=== PATIENT | male | born 1935 | race Two or more races ===

== ENCOUNTER 2017-01-17 16:14 | Emergency (ER) | payer MEDICARE, OTHER ==
[~2017-01-17] VITALS: Ht 157.5 cm; Wt 72.6 kg
[2017-01-17] MEDS ORDERED: ESCI20TA PO (16:38)
[2017-01-17] MEDS ORDERED: RANI150C4 PO (16:38)
[2017-01-17] MEDS ORDERED: LISI10TA5 PO (16:38)
[2017-01-17] MEDS ORDERED: HYDR-3976 PO (16:38)
[2017-01-17] MEDS ORDERED: VILA10TA PO (16:38)
[2017-01-17] MEDS ORDERED: NABU750T2 PO (16:38)
[2017-01-17] MEDS ORDERED: LUBI24CA5 PO (16:38)
[2017-01-17] MEDS ORDERED: DONE10TA44 PO (16:38)
[2017-01-17] MEDS ORDERED: DOCU100C36 PO (16:38)
[2017-01-17 16:58] LABS: BASOPHILS % (AUTO) 0.3 % (0.0-2.0); EOSINOPHILS # (AUTO) 0.1 K/uL (0.0-0.7); EOSINOPHILS % (AUTO) 0.8 % (0.0-7.0); HEMATOCRIT 40.3 % (40-50); HEMOGLOBIN 13.4 G/DL (14.0-18.0); LYMPHOCYTES # (AUTO) 1.3 K/UL (0.8-4.8); LYMPHOCYTES % (AUTO) 18.3 % (20.5-51.5); MEAN CORPUSCULAR HEMOGLOBIN 29.9 UUG (27.0-31.0); MEAN CORPUSCULAR HGB CONC 33 g/dL (32.0-37.0); MEAN CORPUSCULAR VOLUME 89.8 FL (82.0-92.0); MONOCYTES # (AUTO) 0.4 K/UL (0.1-1.30); MONOCYTES % (AUTO) 6.1 % (0.0-11.0); NEUTROPHILS # (AUTO) 5.1 K/UL (1.8-8.9); NEUTROPHILS % (AUTO) 74.5 % (38.5-71.5); PLATELET COUNT (AUTO) 316 K/UL (150-450); RED BLOOD CELL COUNT(AUTO) 4.49 MIL/UL (4.7-6.1); WHITE BLOOD COUNT (AUTO) 6.9 K/UL (4.0-11.2)
[2017-01-17 17:00] LABS: CARBON DIOXIDE 27 mmol/L (21-32); CHLORIDE 105 mmol/L (98-107); CREATININE 1.3 mg/dL (0.6-1.3); GLUCOSE 99 mg/dL (74-106); POTASSIUM 4.5 mmol/L (3.5-5.1); UREA NITROGEN, BLOOD 21 mg/dL (7-18)
--- NOTE | 2017-01-17 17:00 | NUR ---
pt able to walk with own cane with steady gait. pt son chago will take the pt to his home and him and the who is a nurse will watch him. pt says he feels good and elie any headache, dizzines or any other complain
[2017-01-17] MEDS: NEOMY/BACITRA/POLYMYXIN B OINT UD PACKET TP ONE (17:03)
[2017-01-17 17:06] LABS: ALANINE AMINOTRANSFERASE 21 U/L (16-63); ALKALINE PHOSPHATASE 50 U/L (50-136); ASPARTATE AMINOTRANSFERASE 17 U/L (15-37); BILIRUBIN,DIRECT 0.1 mg/dL (0.0-0.2); BILIRUBIN,TOTAL 0.6 mg/dL (0.2-1.0); TOTAL PROTEIN, SERUM 6.8 g/dL (6.4-8.2)
[2017-01-17 17:27] VITALS: BP 138/71
[2017-01-17] MEDS ORDERED: NEOMY/BACITRA/POLYMYXIN B OINT UD PACKET TP ONE (17:32)
== END 2017-01-17 17:31 | disposition home or self-care (01) ==
LOC: ER 16:15
DX: S00.81XA Abrasion of other part of head, initial encounter (principal); K21.9 Gastro-esophageal reflux disease without esophagitis; R55 Syncope and collapse; F32.9 Major depressive disorder, single episode, unspecified; W18.30XA Fall on same level, unspecified, initial encounter; Y93.89 Activity, other specified; Y92.89 Other specified places as the place of occurrence of the external cause; Y99.8 Other external cause status
CPT/HCPCS: 36415; 70450; 71010; 80048; 80076; 84484; 85025; 85730; 93005; 99285; A4663; 70030-TC

== ENCOUNTER 2018-02-05 16:34 | Emergency (ER) | payer MEDICARE, OTHER ==
[~2018-02-05] VITALS: Ht 162.6 cm; Wt 72.6 kg
[~2018-02-05 16:34] MED LIST: DOCU100C36 PO; DONE10TA44 PO; ESCI20TA PO; HYDR-3976 PO; LISI10TA5 PO; LUBI24CA5 PO; NABU750T2 PO; RANI150C4 PO; VILA10TA PO
--- NOTE | 2018-02-05 16:46 | NUR ---
pt's face sheet faxed to Richard at [facility].
[2018-02-05] MEDS ORDERED: NITROGLYCERIN OINT 1 GM PACKET TP ONE ×2 (16:47→17:00)
[2018-02-05] MEDS ORDERED: NITROGLYCERIN 0.4 MG/TAB BOTTLE SL ONE ×2 (16:52→17:00)
[2018-02-05 16:58] VITALS: BP 124/60
--- NOTE | 2018-02-05 16:59 | NUR ---
Patient Tranfers to outside Facility:[facility] home performance laborer Physician: Garett Location: ER dept/home performance laborer RN: [facility] accepted the SB[facility] 83 accepted the patient and transferred to slabbing machine operator.
[2018-02-05 17:01] LABS: BASOPHILS # (AUTO) 0.1 K/uL (0.0-8.0); BASOPHILS % (AUTO) 0.7 % (0.0-2.0); EOSINOPHILS % (AUTO) 0.5 % (0.0-7.0); HEMATOCRIT 41.7 % (36.7-47.1); HEMOGLOBIN 14.2 g/dL (12.5-16.3); LYMPHOCYTES # (AUTO) 1.7 K/uL (20.0-40.0); LYMPHOCYTES % (AUTO) 23.6 % (20.5-51.5); MEAN CORPUSCULAR HEMOGLOBIN 29.8 uug (23.8-33.4); MEAN CORPUSCULAR HGB CONC 34 g/dL (32.5-36.3); MEAN CORPUSCULAR VOLUME 87.8 fL (73.0-96.2); MONOCYTES # (AUTO) 0.6 K/uL (2.0-10.0); NEUTROPHILS # (AUTO) 4.9 K/uL (1.8-8.9); NEUTROPHILS % (AUTO) 67.2 % (38.5-71.5); PLATELET COUNT (AUTO) 246 K/uL (152-348); RED BLOOD CELL COUNT(AUTO) 4.75 MIL/uL (4.06-5.63); WHITE BLOOD COUNT (AUTO) 7.3 K/uL (3.6-10.2)
[2018-02-05 17:18] LABS: CARBON DIOXIDE 28 mmol/L (21-32); CHLORIDE 104 mmol/L (98-107); CREATININE 1.4 mg/dL (0.6-1.3); GLUCOSE 156 mg/dL (74-106); UREA NITROGEN, BLOOD 22 mg/dL (7-18)
[2018-02-05 17:34] LABS: ALANINE AMINOTRANSFERASE 14 U/L (16-63); ALKALINE PHOSPHATASE 54 U/L (50-136); ASPARTATE AMINOTRANSFERASE 26 U/L (15-37); BILIRUBIN,DIRECT 0.1 mg/dL (0.0-0.2); BILIRUBIN,TOTAL 0.6 mg/dL (0.2-1.0); TOTAL PROTEIN, SERUM 7.4 g/dL (6.4-8.2)
== END 2018-02-05 16:59 | disposition short-term general hospital (02) ==
LOC: ER 16:41
DX: I21.3 ST elevation (STEMI) myocardial infarction of unspecified site (principal); K21.9 Gastro-esophageal reflux disease without esophagitis; Z79.891 Long term (current) use of opiate analgesic; Z79.899 Other long term (current) drug therapy
CPT/HCPCS: 36415; 70030-TC; 71045; 85025; 93005; A4663

== ENCOUNTER 2018-10-27 20:43 | Inpatient (IN) | payer MEDICARE, OTHER ==
[~2018-10-27] VITALS: Ht 167.6 cm; Wt 70.1 kg
--- NOTE | 2018-10-27 20:48 | NUR ---
PATIENT WAS MSE BY DR CURRIE IN ROOM 04B. BIB RA 83 FROM HOME.
[2018-10-27 21:14] LABS: BASOPHILS # (AUTO) 0.1 K/uL (0.0-8.0); BASOPHILS % (AUTO) 0.8 % (0.0-2.0); EOSINOPHILS % (AUTO) 0.1 % (0.0-7.0); HEMATOCRIT 44.9 % (36.7-47.1); HEMOGLOBIN 15.1 g/dL (12.5-16.3); LYMPHOCYTES # (AUTO) 0.9 K/uL (20.0-40.0); LYMPHOCYTES % (AUTO) 8.6 % (20.5-51.5); MEAN CORPUSCULAR HEMOGLOBIN 31.3 uug (23.8-33.4); MEAN CORPUSCULAR HGB CONC 34 g/dL (32.5-36.3); MEAN CORPUSCULAR VOLUME 93.2 fL (73.0-96.2); MONOCYTES # (AUTO) 0.6 K/uL (2.0-10.0); MONOCYTES % (AUTO) 5.1 % (0.0-11.0); NEUTROPHILS # (AUTO) 9.4 K/uL (1.8-8.9); NEUTROPHILS % (AUTO) 85.4 % (38.5-71.5); PLATELET COUNT (AUTO) 229 K/uL (152-348); RED BLOOD CELL COUNT(AUTO) 4.82 MIL/uL (4.06-5.63)
[2018-10-27 21:20] LABS: CARBON DIOXIDE 24 mmol/L (21-32); CHLORIDE 106 mmol/L (98-107); CREATININE 2.3 mg/dL (0.6-1.3); GLUCOSE 139 mg/dL (74-106); POTASSIUM 5.3 mmol/L (3.5-5.1); UREA NITROGEN, BLOOD 50 mg/dL (7-18)
[2018-10-27 21:26] LABS: ACETAMINOPHEN < 2.0 ug/mL (10-30); ALANINE AMINOTRANSFERASE 17 U/L (16-63); ALKALINE PHOSPHATASE 50 U/L (50-136); ASPARTATE AMINOTRANSFERASE 16 U/L (15-37); BILIRUBIN,DIRECT 0.2 mg/dL (0.0-0.2); BILIRUBIN,TOTAL 0.9 mg/dL (0.2-1.0); TOTAL PROTEIN, SERUM 7.7 g/dL (6.4-8.2)
[2018-10-27 21:30] LABS: ETHANOL < 3 MG/DL (0-0)
--- NOTE | 2018-10-27 21:54 | NUR ---
[facility] CALLED DR CURRIE SPOKE WITH DR LO.
[2018-10-27 21:57] LABS: *BILIRUBIN,URIN 2+ (NEGATIVE); *BLOOD, URINE NEGATIVE (NEGATIVE); *CLARITY,URINE CLEAR (CLEAR); *COLOR,URINE DARK YELLOW (YELLOW); *KETONES,URINE 1+ (NEGATIVE); *UROBILINOGEN,URINE 0.2 E.U./dl (NORMAL); LEUKOCYTE ESTERASE ,URINE NEGATIVE (NEGATIVE); NITRITE, URINE NEGATIVE (NEGATIVE); UGLUCOSE NEGATIVE (NEGATIVE)
[2018-10-27 21:59] LABS: ABG BASE EXCESS -0.8 mmol/L; ABG HCO3 23.1 mmol/L; ABG PCO2 36.4 mmHg (35.0-45.0); ABG PH 7.421 (7.350-7.450); ABG PO2 127.9 mmHg (75.0-100.0); ABG SITE LEFT BRACHIAL; ABG TOTAL HEMOGLOBIN 15.2 G/dL (13.5-18.0); MetHb 0.4 % (0.0-1.5); O2Hb 97.3 % (94.0-97.0); VENT MODE Nasal Cannula
--- NOTE | 2018-10-27 22:02 | NUR ---
[facility] WAS CALLED PER DR CURRIE REQUEST DR REDDING EXCHANGE WAS PAGED. WAITING FOR CALLBACK
[2018-10-27 22:07] LABS: *AMPHETAMINE, URINE NEGATIVE (NEGATIVE); *BARBITURATE, URINE NEGATIVE (NEGATIVE); *CANNABINOID, URINE NEGATIVE (NEGATIVE); *COCCAINE, URINE NEGATIVE (NEGATIVE); *OPIATE, URINE POSITIVE (NEGATIVE); *PHENCYCLIDINE SCREEN,URINE NEGATIVE (NEGATIVE); BACTERIA,URINE FEW /HPF (NONE SEEN); SQUAMOUS EPITHELIAL CELL,UR FEW /HPF (NONE SEEN); WBC,URINE 0-3 /HPF (0-3)
--- NOTE | 2018-10-27 22:11 | NUR ---
Pt. admitted to [facility] , under care of Dr. REDDING Belongs List completed
--- NOTE | 2018-10-27 22:11 | NUR ---
DR CURRIE SPOKE WITH DR MILADIS QUINTERO TO ADMIT.
[2018-10-27] MEDS ORDERED: METO-356 PO (22:12)
--- NOTE | 2018-10-27 22:12 | NUR ---
Per patient's son, pt is full code, unable to get patient's medication at this time, will follow up. Patient is taking metoprolol, aspirin, gabapentin, and norco.
[2018-10-27] MEDS ORDERED: HYDR-3326 PO (22:16)
[2018-10-27] MEDS ORDERED: GABA-532 PO (22:16)
[2018-10-27] MEDS ORDERED: ASPI81TA31 PO (22:16)
--- NOTE | 2018-10-27 22:45 | NUR ---
Admitted a 83 years old male with diagnosis of AMS. Patient appears lethargic but arouse to verbal and tactile stimuli. Able to answer few question. Alert and oriented x3. Denies any pain or SOB. In no acute distress. On O2 at 3LPM via NC in place. O2 sat fluctuating between 91-97%. IV site on right FA and right upper arm intact and patent. Skin warm and dry to touch. LE cool to touch with cyanotic toes. Radial and pedal pulses present. NSR on tele at 71/min. Family present during admission. ROutine admission care done. Plan of care initiated. Safety measure initiated. Continue to monitor.
[2018-10-27] MEDS ORDERED: ONDANSETRON 4 MG/2 ML VIAL IV PRN (23:00)
[2018-10-27 23:10] VITALS: BP 158/51
[2018-10-28] VITALS (7 sets, daily range): BP systolic 113–171; BP diastolic 53–78
--- NOTE | 2018-10-28 01:15 | NUR ---
0100 -Patient blood pressure was 176/72 checked by AVIATION SAFETY INSPECTOR. Recheck by this nurse and obtained 169/75. Patient asymptomatic. Denies any dizziness, headache or blurred vision. Per patient he takes blood pressure medication but not aware what the name is. Dr. Leonardo made aware and instructed this nurse to take a manual BP and to continue to monitor patient. 0115 - BP check manually and obtain BP of 165/75. Patient remains asymptomatic. Continue to monitor.
--- NOTE | 2018-10-28 06:24 | NUR ---
Patient remains AOx3. In no acute distress. NSR with PAC at 64/min. IV site on right hand and right upper arm remains intact. Denies any pain or SOB. BP at 130/76 this AM. Needs attended to and met. Safety measure maintained and call nicole within reach.
[2018-10-28] MEDS: BLOOD SUGAR DIAGNOSTIC 1 EACH STRIP VI SCH ×4 (06:36→20:27)
[2018-10-28] MEDS: PANTOPRAZOLE SODIUM 40 MG TABLET.DR PO SCH (06:36)
--- NOTE | 2018-10-28 08:00 | NUR ---
AWAKE ALERT AND VERBALLY RESPONSIVE, SOMEWHAT UNCOOPERATIVE WITH CARE. REQUIRES A LOT OF REASSURANCE. MAX ASSIST IN ALL AREAS OF ADLS. SPOKE WITH SON REGARDING HOME MEDS SAID WILL BRING MEDS AND COPY OR LIST. SR/SB ON MONITOR
[2018-10-28 12:20] LABS: BASOPHILS # (AUTO) 0.1 K/uL (0.0-8.0); BASOPHILS % (AUTO) 0.6 % (0.0-2.0); EOSINOPHILS % (AUTO) 0.2 % (0.0-7.0); HEMATOCRIT 43.9 % (36.7-47.1); HEMOGLOBIN 14.5 g/dL (12.5-16.3); LYMPHOCYTES # (AUTO) 1.8 K/uL (20.0-40.0); LYMPHOCYTES % (AUTO) 18.8 % (20.5-51.5); MEAN CORPUSCULAR HEMOGLOBIN 30.6 uug (23.8-33.4); MEAN CORPUSCULAR HGB CONC 33 g/dL (32.5-36.3); MEAN CORPUSCULAR VOLUME 92.7 fL (73.0-96.2); MONOCYTES # (AUTO) 0.7 K/uL (2.0-10.0); MONOCYTES % (AUTO) 7.8 % (0.0-11.0); NEUTROPHILS # (AUTO) 6.9 K/uL (1.8-8.9); NEUTROPHILS % (AUTO) 72.6 % (38.5-71.5); PLATELET COUNT (AUTO) 187 K/uL (152-348); RED BLOOD CELL COUNT(AUTO) 4.73 MIL/uL (4.06-5.63); WHITE BLOOD COUNT (AUTO) 9.6 K/uL (3.6-10.2)
[2018-10-28 12:38] LABS: ALANINE AMINOTRANSFERASE 17 U/L (16-63); ALKALINE PHOSPHATASE 42 U/L (50-136); ASPARTATE AMINOTRANSFERASE 21 U/L (15-37); BILIRUBIN,TOTAL 0.8 mg/dL (0.2-1.0); CARBON DIOXIDE 27 mmol/L (21-32); CHLORIDE 105 mmol/L (98-107); CHOLESTEROL 141 mg/dL (<200); CREATININE 1.5 mg/dL (0.6-1.3); GLUCOSE 117 mg/dL (74-106); HDL CHOLESTEROL 41 mg/dL (40-60); MAGNESIUM 2.2 mg/dL (1.8-2.4); PHOSPHOROUS 3.3 mg/dL (2.5-4.9); POTASSIUM 4.6 mmol/L (3.5-5.1); TOTAL PROTEIN, SERUM 6.6 g/dL (6.4-8.2); TRIGLYCERIDES 82 MG/DL (30-150); UREA NITROGEN, BLOOD 41 mg/dL (7-18)
[2018-10-28] MEDS ORDERED: TRAM50TA2 PO (14:43)
[2018-10-28] MEDS ORDERED: DOCU-270 PO (14:43)
[2018-10-28] MEDS ORDERED: ATOR80TA PO (14:43)
[2018-10-28] MEDS ORDERED: MECL-102 PO (14:43)
[2018-10-28] MEDS ORDERED: SUCR1TAB PO (14:43)
[2018-10-28] MEDS ORDERED: ISOS30TA6 PO (14:43)
[2018-10-28] MEDS ORDERED: MAGN400C PO (14:43)
[2018-10-28] MEDS ORDERED: TRAZ-182 PO (14:43)
[2018-10-28] MEDS ORDERED: RANI150T8 PO (14:43)
[2018-10-28] MEDS ORDERED: DULO60CA45 PO (14:43)
[2018-10-28] MEDS ORDERED: FERR325T22 PO (14:43)
[2018-10-28] MEDS ORDERED: ENTA200T PO (14:43)
[2018-10-28] MEDS ORDERED: PANT40TA2 PO (14:43)
[2018-10-28] MEDS ORDERED: LUBI24CA5 PO (14:43)
[2018-10-28] MEDS ORDERED: MIRA25TA PO (14:43)
[2018-10-28] MEDS ORDERED: MELO7.5T12 PO (14:43)
[2018-10-28] MEDS ORDERED: CARB-93 PO (14:43)
[2018-10-28] MEDS ORDERED: NABUMETONE 500 MG PO SCH (15:30)
[2018-10-28] MEDS ORDERED: MECLIZINE HCL 25 MG TABLET PO PRN (15:30)
[2018-10-28] MEDS: SUCRALFATE 1 G TABLET PO SCH ×2 (16:38→23:31)
[2018-10-28] MEDS: ENTACAPONE 200 MG TABLET PO SCH (16:38)
[2018-10-28] MEDS: CARBIDOPA/LEVODOPA 25-100MG TABLET PO SCH ×2 (16:38→20:13)
--- NOTE | 2018-10-28 16:55 | NUR ---
CONTINUE WITH TELE OBSERVATION SR/SB ON MONITOR.
--- NOTE | 2018-10-28 16:56 | NUR ---
SEEN BY HOSPITALIST Hiren GIBBS WITH ORDERS. PATIENT SOMTIMES CAN BE UNCOOPERATIVE, REFUSED BLOOD DRAWING THIS AM BUT AGREED LATER AFTER EXPLAINING THE IMPORTANCE OF DRAWING BLOOD
[2018-10-28] MEDS ORDERED: MAGNESIUM OXIDE 250 MG PO SCH (17:00)
[2018-10-28] MEDS ORDERED: MELOXICAM 7.5 MG TABLET PO SCH (17:00)
[2018-10-28] MEDS ORDERED: Medication Not On Formulary EA (Ferrous Gluconate 324 MG) PO SCH (17:00)
[2018-10-28] MEDS ORDERED: MAGNESIUM OXIDE 250 MG TABLET PO SCH (17:00)
[2018-10-28] MEDS ORDERED: GUAIFENESIN/CODEINE 5 ML LIQUID UDC PO PRN ×2 (17:45→18:30)
[2018-10-28] MEDS ORDERED: GUAIFENESIN/DEXTROMETHORPHAN 5 ML UDC PO PRN (18:30)
--- NOTE | 2018-10-28 19:20 | NUR ---
Received patient lying in bed. AAOX3. In no acute distress. Denies any pain or SOB. IV site on right upper arm and right hand intact and patent. Occasional non-productive cough. WIll provide cough medication per order. Sinus joao with block PAC on tele at 54/min. Needs assessed and attended to. Safety measure initiated and call nicole within reach.
[2018-10-28] MEDS: ACETAMINOPHEN 325 MG TABLET PO PRN (20:13)
[2018-10-28] MEDS: ATORVASTATIN 40 MG TABLET PO SCH (20:13)
[2018-10-28] MEDS ORDERED: DEXTROSE 50% 50 ML DISP.SYRIN IV PRN (20:30)
[2018-10-28] MEDS: INSULIN REGULAR, HUMAN 300 UNIT/3 ML VIAL SQ PRN (20:36)
[2018-10-28] MEDS: FERROUS GLUCONATE 324 MG TABLET PO SCH (20:39)
[2018-10-28] MEDS ORDERED: BLOOD SUGAR DIAGNOSTIC 1 EACH STRIP VI SCH (21:00)
[2018-10-28] MEDS ORDERED: Medication Not On Formulary EA (Atorvastatin Calcium (Lipitor) 1 TAB) PO SCH (21:00)
--- NOTE | 2018-10-28 23:15 | NUR ---
PATIENT REQUESTING SLEEPING MEDICATION. Hiren FONTANA MADE AWARE AND ORDER A ONE TIME DOSE OF TRAZADONE 25MG. ORDER NOTED AND WILL CARRY OUT.
[2018-10-28] MEDS ORDERED: TRAZODONE 50 MG TABLET PO ONE (23:30)
[2018-10-29 00:46] VITALS: BP 146/62
[2018-10-29 05:11] VITALS: BP 132/64
--- NOTE | 2018-10-29 06:13 | NUR ---
AOx3. Slept well after taking Trazodone 25mg PO last night. In no acute distress. Sinus joao with occasional block PAC at 59/min. IV site on right hand and right upper arm remains intact. Denies any pain or SOB. Needs attended to and met. Safety measure maintained and call nicole within reach.
[2018-10-29] MEDS: PANTOPRAZOLE SODIUM 40 MG TABLET.DR PO SCH (06:19)
[2018-10-29] MEDS: SUCRALFATE 1 G TABLET PO SCH ×4 (06:19→23:47)
[2018-10-29] MEDS: BLOOD SUGAR DIAGNOSTIC 1 EACH STRIP VI SCH ×4 (06:31→20:30)
[2018-10-29 06:39] LABS: BASOPHILS % (AUTO) 0.2 % (0.0-2.0); EOSINOPHILS # (AUTO) 0.1 K/uL (0.0-0.7); EOSINOPHILS % (AUTO) 0.8 % (0.0-7.0); HEMOGLOBIN 14.7 g/dL (12.5-16.3); LYMPHOCYTES # (AUTO) 1.9 K/uL (20.0-40.0); LYMPHOCYTES % (AUTO) 25.9 % (20.5-51.5); MEAN CORPUSCULAR HEMOGLOBIN 31.1 uug (23.8-33.4); MEAN CORPUSCULAR HGB CONC 34 g/dL (32.5-36.3); MEAN CORPUSCULAR VOLUME 92.7 fL (73.0-96.2); MONOCYTES # (AUTO) 0.6 K/uL (2.0-10.0); MONOCYTES % (AUTO) 7.8 % (0.0-11.0); NEUTROPHILS # (AUTO) 4.7 K/uL (1.8-8.9); NEUTROPHILS % (AUTO) 65.3 % (38.5-71.5); PLATELET COUNT (AUTO) 184 K/uL (152-348); RED BLOOD CELL COUNT(AUTO) 4.74 MIL/uL (4.06-5.63); WHITE BLOOD COUNT (AUTO) 7.2 K/uL (3.6-10.2)
[2018-10-29 06:45] LABS: CREATININE 1.3 mg/dL (0.6-1.3); MAGNESIUM 1.9 mg/dL (1.8-2.4); PHOSPHOROUS 2.9 mg/dL (2.5-4.9); POTASSIUM 4.1 mmol/L (3.5-5.1)
--- NOTE | 2018-10-29 06:48 | NUR ---
Slime/Miquel called and reported Troponin level of 0.096 this AM. Will notify
--- NOTE | 2018-10-29 07:06 | NUR ---
Telephone call to Cardiology Dr. Rodriguez, informed of Troponin level this AM of 0.096. Per Dr. Rodriguez he will notify Dr. Chapin this AM. Endorsed to day shift nurse Bri to follow up.
[2018-10-29] MEDS: DONEPEZIL 10 MG TABLET PO SCH (08:43)
[2018-10-29] MEDS: DOCUSATE SODIUM 100 MG CAPSULE PO SCH (08:43)
[2018-10-29] MEDS: ISOSORBIDE MONONITRATE 30 MG TAB.SR.24H PO SCH (08:43)
[2018-10-29] MEDS: ACETAMINOPHEN 325 MG TABLET PO PRN (08:43)
[2018-10-29] MEDS: ESCITALOPRAM OXALATE 10 MG TABLET PO SCH (08:43)
[2018-10-29] MEDS: DULOXETINE 60 MG CAPSULE.DR PO SCH (08:44)
[2018-10-29] MEDS: CARBIDOPA/LEVODOPA 25-100MG TABLET PO SCH ×4 (08:44→20:24)
[2018-10-29] MEDS: ENTACAPONE 200 MG TABLET PO SCH ×2 (08:44→17:15)
[2018-10-29] MEDS: AMITIZA 24 MCG PO SCH (08:47)
[2018-10-29] MEDS: FERROUS GLUCONATE 324 MG TABLET PO SCH ×2 (08:47→20:24)
[2018-10-29] MEDS: NABUMETONE 500 MG PO SCH ×2 (08:47→17:22)
[2018-10-29] MEDS: MYRBETRIQ 25 MG PO SCH (08:47)
[2018-10-29] MEDS: METOPROLOL SUCCINATE XL 25 MG TAB.SR.24H PO SCH (08:53)
[2018-10-29] MEDS ORDERED: Medication Not On Formulary EA (Escitalopram Oxalate (Lexapro) 1 TAB) PO SCH (09:00)
[2018-10-29] MEDS ORDERED: Medication Not On Formulary EA (Vilazodone Hydrochloride (Viibryd) 20 MG) PO SCH (09:00)
[2018-10-29] MEDS ORDERED: PANTOPRAZOLE SODIUM 40 MG TABLET.DR PO SCH (09:00)
[2018-10-29] MEDS ORDERED: Medication Not On Formulary EA (Lubiprostone (Amitiza) 24 MCG) PO SCH (09:00)
[2018-10-29 11:27] VITALS: BP 123/67
[2018-10-29] MEDS ORDERED: POLYVINYL ALCOHOL OPHT DROPS 15 ML BOTTLE EACHEYE PRN (11:30)
[2018-10-29] MEDS: INSULIN REGULAR, HUMAN 300 UNIT/3 ML VIAL SQ PRN ×2 (11:42→20:34)
--- NOTE | 2018-10-29 12:00 | NUR ---
SEEN BY Hiren TIWARI HOSPITALIST NOTED SORE EYES AND BACK PAIN NOT RELIEVED WITH TYLENOL SEE NEW ORDERS. SEEN ALSO BY PT/OT/ST SEE NOTES
[2018-10-29] MEDS: IBUPROFEN 400 MG TABLET PO PRN ×2 (12:46→18:26)
--- NOTE | 2018-10-29 13:00 | NUR ---
SEEN BY DR CLANCY FOR CARDIO CONSULT SEE NOTES.
[2018-10-29] MEDS: ASPIRIN 81 MG TAB.CHEW PO SCH (14:20)
[2018-10-29 16:02] VITALS: BP 118/61
--- NOTE | 2018-10-29 17:52 | NUR ---
CONTINUE TELE OBSERVATION PATIENT DENIES CHEST PAIN OR SOB. MEDICATED FOR BACK PAIN WITH MOTRIN WITH GOOD RELIEF REMAINS SR ON MONITOR
--- NOTE | 2018-10-29 19:00 | NUR ---
Received patient in bed alert and awake. Iv site is intact and patent. VS stable. patient is in no apparent distress at this time. Bed in lowest position, locked, call light within reach. no changes in mental status. will continue to monitor.
[2018-10-29 20:00] VITALS: BP 106/43
[2018-10-29] MEDS: ATORVASTATIN 40 MG TABLET PO SCH (20:24)
--- NOTE | 2018-10-29 23:00 | NUR ---
Patient is requesting for sleeping medication. spoke to Md Sauceda for request. Dr. Sauceda ordered Trazodone 25mg every Hs prn for sleep.
[2018-10-29] MEDS ORDERED: TRAZODONE 50 MG TABLET PO PRN (23:15)
[2018-10-30 04:00] VITALS: BP 126/68
[2018-10-30] MEDS ORDERED: Z GUARD REMEDY PASTE 57 GM TUBE TOP PRN (04:15)
[2018-10-30] MEDS: PANTOPRAZOLE SODIUM 40 MG TABLET.DR PO SCH (06:10)
[2018-10-30] MEDS: SUCRALFATE 1 G TABLET PO SCH ×3 (06:10→16:49)
[2018-10-30] MEDS: BLOOD SUGAR DIAGNOSTIC 1 EACH STRIP VI SCH ×3 (06:31→16:49)
[2018-10-30 06:45] LABS: BASOPHILS % (AUTO) 0.2 % (0.0-2.0); EOSINOPHILS # (AUTO) 0.1 K/uL (0.0-0.7); EOSINOPHILS % (AUTO) 1.3 % (0.0-7.0); HEMATOCRIT 41.4 % (36.7-47.1); HEMOGLOBIN 13.9 g/dL (12.5-16.3); LYMPHOCYTES # (AUTO) 2.4 K/uL (20.0-40.0); LYMPHOCYTES % (AUTO) 29.1 % (20.5-51.5); MEAN CORPUSCULAR HEMOGLOBIN 30.9 uug (23.8-33.4); MEAN CORPUSCULAR HGB CONC 34 g/dL (32.5-36.3); MEAN CORPUSCULAR VOLUME 91.9 fL (73.0-96.2); MONOCYTES # (AUTO) 0.6 K/uL (2.0-10.0); MONOCYTES % (AUTO) 7.6 % (0.0-11.0); NEUTROPHILS # (AUTO) 5.1 K/uL (1.8-8.9); NEUTROPHILS % (AUTO) 61.8 % (38.5-71.5); PLATELET COUNT (AUTO) 182 K/uL (152-348); RED BLOOD CELL COUNT(AUTO) 4.51 MIL/uL (4.06-5.63); WHITE BLOOD COUNT (AUTO) 8.2 K/uL (3.6-10.2)
--- NOTE | 2018-10-30 06:55 | NUR ---
Patient is alert and awake ,slept intermittently . patient is in no distress at this time. Denies any discomfort. bed in lowest position, locked , and call light within reach. Will endorse to AM shift.
[2018-10-30 07:04] LABS: CARBON DIOXIDE 26 mmol/L (21-32); CHLORIDE 107 mmol/L (98-107); CREATININE 1.3 mg/dL (0.6-1.3); GLUCOSE 105 mg/dL (74-106); MAGNESIUM 1.8 mg/dL (1.8-2.4); PHOSPHOROUS 2.7 mg/dL (2.5-4.9); POTASSIUM 3.7 mmol/L (3.5-5.1); UREA NITROGEN, BLOOD 33 mg/dL (7-18)
--- NOTE | 2018-10-30 07:30 | NUR ---
RESTING IN BED WITH EYES CLOSED NO SS OF ACUTE PAIN OR DISTRESS, CONTINUE WITH PAIN MANAGEMENT AND P[BHAVESH FOR ARU DISCHARGE FOR CONTINUITY OF CARE
[2018-10-30] MEDS ORDERED: LISINOPRIL 10 MG TABLET PO SCH (09:00)
[2018-10-30] MEDS: ISOSORBIDE MONONITRATE 30 MG TAB.SR.24H PO SCH (09:33)
[2018-10-30] MEDS: DULOXETINE 60 MG CAPSULE.DR PO SCH (09:33)
[2018-10-30] MEDS: DOCUSATE SODIUM 100 MG CAPSULE PO SCH (09:33)
[2018-10-30] MEDS: ESCITALOPRAM OXALATE 10 MG TABLET PO SCH (09:34)
[2018-10-30] MEDS: ASPIRIN 81 MG TAB.CHEW PO SCH (09:34)
[2018-10-30] MEDS: CARBIDOPA/LEVODOPA 25-100MG TABLET PO SCH ×3 (09:34→16:47)
[2018-10-30] MEDS: ENTACAPONE 200 MG TABLET PO SCH ×2 (09:34→16:47)
[2018-10-30] MEDS: DONEPEZIL 10 MG TABLET PO SCH (09:34)
[2018-10-30] MEDS: FERROUS GLUCONATE 324 MG TABLET PO SCH (09:39)
[2018-10-30] MEDS: NABUMETONE 500 MG PO SCH ×2 (09:39→16:50)
[2018-10-30] MEDS: MYRBETRIQ 25 MG PO SCH (09:40)
[2018-10-30] MEDS: AMITIZA 24 MCG PO SCH (09:40)
[2018-10-30] MEDS: METOPROLOL SUCCINATE XL 25 MG TAB.SR.24H PO SCH (09:41)
[2018-10-30] MEDS: IBUPROFEN 400 MG TABLET PO PRN (10:25)
[2018-10-30 12:03] VITALS: BP 114/61
--- NOTE | 2018-10-30 12:30 | NUR ---
SEEN BY HOSPITALIST FOR FOLLOW-UP CONTINUE WITH DC PLAN. DISCHARGE ORDER RECEIVED. INNER TUBE TUBER MACHINE OPERATOR SPOKE WITH PATIENT AND SON BOTH AGREED PLAN OF CARE
[2018-10-30] MEDS ORDERED: CARBIDOPA/LEVODOPA 25-100MG TABLET PO SCH (13:00)
--- NOTE | 2018-10-30 15:59 | NUR ---
HOSPITALIST SPOKE WITH PATIENT ABOUT PLAN TO TRANSFER TO ARU PATIENT SOMEWHAT HESITANT ABOUT TRANSFER
[2018-10-30 16:02] VITALS: BP 122/48
[2018-10-30] MEDS: INSULIN REGULAR, HUMAN 300 UNIT/3 ML VIAL SQ PRN (17:26)
--- NOTE | 2018-10-30 17:45 | NUR ---
TRANSFERRED TO ARU [facility] VIA BED, STABLE. REPORT GIVEN TO ARU STAFF
== END 2018-10-30 17:39 | DRG 917 ==
LOC: ER 20:46 → TELE3 22:29 → MEDSURG3 10-29 14:20
PROVIDERS: ADMIT Internal Medicine; ATTEND Registered Nurse
DX: T40.2X1A Poisoning by other opioids, accidental (unintentional), initial encounter (principal); G92 Toxic encephalopathy; I21.A1 Myocardial infarction type 2; N17.0 Acute kidney failure with tubular necrosis; Y92.012 Bathroom of single-family (private) house as the place of occurrence of the external cause; F32.9 Major depressive disorder, single episode, unspecified; D72.829 Elevated white blood cell count, unspecified; E86.0 Dehydration; E78.5 Hyperlipidemia, unspecified; E87.5 Hyperkalemia; G89.29 Other chronic pain; Z95.1 Presence of aortocoronary bypass graft; E11.22 Type 2 diabetes mellitus with diabetic chronic kidney disease; I13.10 Hypertensive heart and chronic kidney disease without heart failure, with stage 1 through stage 4 chronic kidney disease, or unspecified chronic kidney disease; N18.9 Chronic kidney disease, unspecified; I25.10 Atherosclerotic heart disease of native coronary artery without angina pectoris; K21.9 Gastro-esophageal reflux disease without esophagitis; Z79.82 Long term (current) use of aspirin
CPT/HCPCS: 36415; 36600; 70030-TC; 70450; 71045; 80307; 83605; 83735; 84100; 84443; 85025; 85730; 87040; 87086; 93005; 93307; 93880; A4663; G0378; G0480; G0480-TC; J1815

== ENCOUNTER 2018-10-30 15:52 | Inpatient (IN) | payer MEDICARE, OTHER ==
[~2018-10-30] VITALS: Ht 172.7 cm; Wt 90.3 kg
[~2018-10-30 15:52] MED LIST changes: +ASPI81TA31 PO; +ATOR80TA PO; +CARB-93 PO; +DOCU-270 PO; +DULO60CA45 PO; +ENTA200T PO; +FERR325T22 PO; +GABA-532 PO; +HYDR-3326 PO; +ISOS30TA6 PO; +MAGN400C PO; +MECL-102 PO; +MELO7.5T12 PO; +METO-356 PO; +MIRA25TA PO; +PANT40TA2 PO; +RANI150T8 PO; +SUCR1TAB PO; +TRAM50TA2 PO; +TRAZ-182 PO
[2018-10-30 18:00] VITALS: BP 123/70
--- NOTE | 2018-10-30 19:30 | NUR ---
PATIENT RECEIVED FROM DAY SHIFT NURSE. ALERT AND ORIENTED 3-4. NO C/O PAIN OR SOB AT THIS TIME. ON URINAL FOR BATHROOM USE. NO SKIN PROBLEMS NOTED UPON ASSESSMENT. BELONGINGS NOTED AND LIST PLACED IN CHART. CALL LIGHT AND FREQUENTLY USED TIMES WITHIN REACH. SIDE RAILS UP BILATERALLY. WILL CONTINUE TO MONITOR.
[2018-10-30 20:18] VITALS: BP 112/51
--- NOTE | 2018-10-30 23:15 | NUR ---
MD HARRIS CONTACTED FOR MED RECON. SAYS HE WILL DO IT TOMORROW. WILL CONTINUE TO MONITOR.
[2018-10-31 04:34] VITALS: BP 105/66
[2018-10-31 07:30] VITALS: BP 143/77
--- NOTE | 2018-10-31 09:00 | NUR ---
Received patient awake, alert x4 resting in bed. Not in any form of distress. No complaint of pain. Up with occupational therapy for shower, showered with minimal assistance.
--- NOTE | 2018-10-31 11:30 | NUR ---
Patient complained of pain over bilateral knees and lower back, informed dr Myers and ordered [place] PRN. Informed Pako Gold/BLU as well and requested for medication reconciliation.
[2018-10-31] MEDS ORDERED: HYDROCODONE/APAP 5-325MG TABLET PO PRN (12:45)
[2018-10-31] MEDS ORDERED: NABUMETONE 500 MG PO SCH (13:15)
[2018-10-31] MEDS ORDERED: MECLIZINE HCL 25 MG TABLET PO SCH (13:15)
[2018-10-31 15:10] VITALS: BP 146/71
[2018-10-31] MEDS: MAGNESIUM HYDROXIDE 30 ML LIQUID UDC PO PRN (16:27)
[2018-10-31] MEDS: HYDROCODONE/APAP 5-325MG TABLET PO PRN (16:27)
[2018-10-31] MEDS ORDERED: MAGNESIUM OXIDE 250 MG PO SCH (17:00)
[2018-10-31] MEDS ORDERED: Medication Not On Formulary EA (Ferrous Gluconate 324 MG) PO SCH (17:00)
[2018-10-31] MEDS: MAGNESIUM OXIDE 250 MG TABLET PO SCH (17:33)
[2018-10-31] MEDS: CARBIDOPA/LEVODOPA 25-100MG TABLET PO SCH ×2 (17:33→21:21)
[2018-10-31] MEDS: ENTACAPONE 200 MG TABLET PO SCH (17:33)
[2018-10-31] MEDS: SUCRALFATE 1 G TABLET PO SCH (17:33)
[2018-10-31] MEDS: NABUMETONE 500MG PO SCH (17:33)
[2018-10-31] MEDS: MELOXICAM 7.5 MG TABLET PO SCH (17:33)
[2018-10-31 19:30] VITALS: BP 117/54
--- NOTE | 2018-10-31 19:30 | NUR ---
Received patient in bed, with son at bedside. Alert and oriented 3-4. C/O pain 09/05 upon assessment. Too early to give pain medication. Will monitor. Assisted with night time ADLs. No C/O SOB or distress at this time. Call light and frequently used items within reach. Will continue to monitor.
[2018-10-31] MEDS ORDERED: ZOLPIDEM 5 MG TABLET PO PRN (20:45)
[2018-10-31] MEDS: TRAZODONE 50 MG TABLET PO SCH (20:48)
[2018-10-31] MEDS: FERROUS GLUCONATE 324 MG TABLET PO SCH (20:48)
[2018-10-31] MEDS: DOCUSATE SODIUM 100 MG CAPSULE PO SCH (20:48)
[2018-10-31] MEDS: ATORVASTATIN 40 MG TABLET PO SCH (20:48)
[2018-10-31] MEDS ORDERED: RANITIDINE HCL PO SCH (21:00)
[2018-10-31] MEDS ORDERED: Medication Not On Formulary EA (Atorvastatin Calcium (Lipitor) 1 TAB) PO SCH (21:00)
[2018-11-01 05:22] VITALS: BP 150/51
[2018-11-01] MEDS: SUCRALFATE 1 G TABLET PO SCH ×5 (06:06→23:19)
[2018-11-01] MEDS: PANTOPRAZOLE SODIUM 40 MG TABLET.DR PO SCH ×2 (06:07→09:26)
[2018-11-01 06:57] LABS: BASOPHILS % (AUTO) 0.6 % (0.0-2.0); EOSINOPHILS # (AUTO) 0.1 K/uL (0.0-0.7); EOSINOPHILS % (AUTO) 1.8 % (0.0-7.0); HEMATOCRIT 43.5 % (36.7-47.1); HEMOGLOBIN 14.7 g/dL (12.5-16.3); LYMPHOCYTES # (AUTO) 2.1 K/uL (20.0-40.0); LYMPHOCYTES % (AUTO) 32.1 % (20.5-51.5); MEAN CORPUSCULAR HEMOGLOBIN 30.7 uug (23.8-33.4); MEAN CORPUSCULAR HGB CONC 34 g/dL (32.5-36.3); MONOCYTES # (AUTO) 0.5 K/uL (2.0-10.0); MONOCYTES % (AUTO) 7.8 % (0.0-11.0); NEUTROPHILS # (AUTO) 3.8 K/uL (1.8-8.9); NEUTROPHILS % (AUTO) 57.7 % (38.5-71.5); PLATELET COUNT (AUTO) 185 K/uL (152-348); RED BLOOD CELL COUNT(AUTO) 4.78 MIL/uL (4.06-5.63); WHITE BLOOD COUNT (AUTO) 6.6 K/uL (3.6-10.2)
[2018-11-01 07:05] LABS: CARBON DIOXIDE 28 mmol/L (21-32); CHLORIDE 108 mmol/L (98-107); CREATININE 1.1 mg/dL (0.6-1.3); GLUCOSE 96 mg/dL (74-106); UREA NITROGEN, BLOOD 26 mg/dL (7-18)
[2018-11-01 08:38] VITALS: BP 128/71
[2018-11-01] MEDS ORDERED: DOCUSATE SODIUM 100 MG CAPSULE PO SCH (09:00)
[2018-11-01] MEDS ORDERED: Medication Not On Formulary EA (Lubiprostone (Amitiza) 24 MCG) PO SCH (09:00)
[2018-11-01] MEDS ORDERED: Medication Not On Formulary EA (Escitalopram Oxalate (Lexapro) 1 TAB) PO SCH (09:00)
[2018-11-01] MEDS ORDERED: Medication Not On Formulary EA (Vilazodone Hydrochloride (Viibryd) 20 MG) PO SCH (09:00)
[2018-11-01] MEDS ORDERED: ESCITALOPRAM OXALATE 10 MG TABLET PO SCH (09:00)
[2018-11-01] MEDS: CARBIDOPA/LEVODOPA 25-100MG TABLET PO SCH ×4 (09:24→20:43)
[2018-11-01] MEDS: DOCUSATE SODIUM 100 MG CAPSULE PO SCH ×2 (09:25→20:44)
[2018-11-01] MEDS: MYRBETRIQ 25 MG PO SCH (09:25)
[2018-11-01] MEDS: DONEPEZIL 10 MG TABLET PO SCH (09:26)
[2018-11-01] MEDS: ASPIRIN 81 MG TAB.CHEW PO SCH (09:27)
[2018-11-01] MEDS: METOPROLOL SUCCINATE XL 25 MG TAB.SR.24H PO SCH (09:27)
[2018-11-01] MEDS: NABUMETONE 500MG PO SCH ×2 (09:28→17:35)
[2018-11-01] MEDS: FERROUS GLUCONATE 324 MG TABLET PO SCH ×2 (09:28→20:44)
[2018-11-01] MEDS: MAGNESIUM OXIDE 250 MG TABLET PO SCH ×2 (09:29→17:34)
[2018-11-01] MEDS: MELOXICAM 7.5 MG TABLET PO SCH ×2 (09:29→17:35)
[2018-11-01] MEDS: ISOSORBIDE MONONITRATE 30 MG TAB.SR.24H PO SCH (09:30)
[2018-11-01] MEDS: ENTACAPONE 200 MG TABLET PO SCH ×2 (09:31→17:34)
[2018-11-01] MEDS: DULOXETINE 60 MG CAPSULE.DR PO SCH (09:31)
[2018-11-01] MEDS: GABAPENTIN 100 MG CAPSULE PO SCH (09:32)
[2018-11-01] MEDS: AMITIZA (LUBIPROSTONE) 24MCG PO SCH (09:32)
[2018-11-01] MEDS: HYDROCODONE/APAP 5-325MG TABLET PO PRN ×2 (09:33→21:41)
[2018-11-01] MEDS: LISINOPRIL 10 MG TABLET PO SCH (09:56)
[2018-11-01] MEDS: MAGNESIUM HYDROXIDE 30 ML LIQUID UDC PO PRN (12:42)
[2018-11-01 16:52] VITALS: BP 90/46
--- NOTE | 2018-11-01 19:22 | NUR ---
Patient calm and comfortable with no signs of distress; stable vital signs; medication compliant.
[2018-11-01 19:49] VITALS: BP 94/45
--- NOTE | 2018-11-01 20:00 | NUR ---
Patient received to care, sitting up in chair, alert and oriented x4. Patient has no complaints of pain at this time, but asked if doctor was coming tonight. Nurse advised patient that MD is not coming tonight, but possibly tomorrow. All safety and fall precaution measures are in place. Call light and personal items are within reach at all times. Will continue to monitor.
[2018-11-01] MEDS: ATORVASTATIN 40 MG TABLET PO SCH (20:44)
[2018-11-01] MEDS: TRAZODONE 50 MG TABLET PO SCH (20:44)
--- NOTE | 2018-11-01 21:30 | NUR ---
Patient requested sleep aid to help him sleep; per EMAR, previous order for Carlotta was d/c by MD this evening, which nurse explained to patient. Patient states that his hernia causes abdominal pain. Nurse offered patient prescribed analgesics and explained that it could assist him to sleep by easing the pain he is experiencing. Patient said ok.
--- NOTE | 2018-11-02 00:57 | NUR ---
INDIVIDUALIZED PLAN OF CARE
[2018-11-02 04:52] VITALS: BP 127/67
[2018-11-02] MEDS: SUCRALFATE 1 G TABLET PO SCH ×3 (06:04→17:11)
[2018-11-02] MEDS: PANTOPRAZOLE SODIUM 40 MG TABLET.DR PO SCH ×2 (06:04→07:52)
--- NOTE | 2018-11-02 06:33 | NUR ---
Patient complained of not sleeping all night and is concerned how it might effect his therapy today. Nurse apologized to patient for his inability to sleep and advised patient that I would have morning nurse follow-up with MD to see if previous Ambien order could be reinstated. All safety and fall precaution measures remain in place. VS are wnl and patient is stable. Call light and personal items remain within reach at all times.
[2018-11-02] MEDS: DOCUSATE SODIUM 100 MG CAPSULE PO SCH ×2 (07:52→21:27)
[2018-11-02] MEDS: CARBIDOPA/LEVODOPA 25-100MG TABLET PO SCH ×4 (07:52→21:27)
[2018-11-02] MEDS: ASPIRIN 81 MG TAB.CHEW PO SCH (07:52)
[2018-11-02] MEDS: DONEPEZIL 10 MG TABLET PO SCH (07:53)
[2018-11-02] MEDS: METOPROLOL SUCCINATE XL 25 MG TAB.SR.24H PO SCH (07:53)
[2018-11-02] MEDS: ENTACAPONE 200 MG TABLET PO SCH ×2 (07:53→17:10)
[2018-11-02] MEDS: DULOXETINE 60 MG CAPSULE.DR PO SCH (07:54)
[2018-11-02] MEDS: LISINOPRIL 10 MG TABLET PO SCH (07:55)
[2018-11-02] MEDS: GABAPENTIN 100 MG CAPSULE PO SCH (07:55)
[2018-11-02] MEDS: MELOXICAM 7.5 MG TABLET PO SCH ×2 (07:56→17:11)
[2018-11-02] MEDS: MAGNESIUM OXIDE 250 MG TABLET PO SCH ×2 (07:56→17:11)
[2018-11-02] MEDS: MYRBETRIQ 25 MG PO SCH (07:57)
[2018-11-02] MEDS: NABUMETONE 500MG PO SCH ×2 (07:58→17:10)
[2018-11-02] MEDS: FERROUS GLUCONATE 324 MG TABLET PO SCH ×2 (07:59→22:27)
[2018-11-02] MEDS: AMITIZA (LUBIPROSTONE) 24MCG PO SCH (07:59)
[2018-11-02] MEDS: ISOSORBIDE MONONITRATE 30 MG TAB.SR.24H PO SCH (08:00)
[2018-11-02 08:01] VITALS: BP 135/55
[2018-11-02] MEDS: HYDROCODONE/APAP 5-325MG TABLET PO PRN ×3 (08:07→17:13)
--- NOTE | 2018-11-02 15:14 | NUR ---
INTERDISCIPLINARY TEAM CONFERENCE
[2018-11-02 15:44] VITALS: BP 110/50
[2018-11-02 21:26] VITALS: BP 118/62
[2018-11-02] MEDS: ATORVASTATIN 40 MG TABLET PO SCH (21:27)
[2018-11-02] MEDS: TRAZODONE 100 MG TABLET PO SCH (22:28)
[2018-11-03] MEDS: SUCRALFATE 1 G TABLET PO SCH ×4 (00:46→16:44)
--- NOTE | 2018-11-03 00:51 | NUR ---
Patient sleeping comfortably at this time, easily arousable. Pt. is alert and oriented x3 able to express needs verbally. In No acute distress. Due medications administered as ordered and scheduled. patient assisted with ADLs during shift, needs attended, safety measures in place, call light left within easy reach and will continue with care.
[2018-11-03 05:58] VITALS: BP 122/58
[2018-11-03] MEDS: PANTOPRAZOLE SODIUM 40 MG TABLET.DR PO SCH (06:04)
[2018-11-03 08:00] VITALS: BP 121/45
[2018-11-03] MEDS: DOCUSATE SODIUM 100 MG CAPSULE PO SCH ×2 (08:34→20:54)
[2018-11-03] MEDS: ENTACAPONE 200 MG TABLET PO SCH ×2 (08:34→16:43)
[2018-11-03] MEDS: CARBIDOPA/LEVODOPA 25-100MG TABLET PO SCH ×4 (08:34→20:54)
[2018-11-03] MEDS: DONEPEZIL 10 MG TABLET PO SCH (08:34)
[2018-11-03] MEDS: GABAPENTIN 100 MG CAPSULE PO SCH (08:35)
[2018-11-03] MEDS: DULOXETINE 60 MG CAPSULE.DR PO SCH (08:35)
[2018-11-03] MEDS: MYRBETRIQ 25 MG PO SCH (08:35)
[2018-11-03] MEDS: ISOSORBIDE MONONITRATE 30 MG TAB.SR.24H PO SCH (08:36)
[2018-11-03] MEDS: FERROUS GLUCONATE 324 MG TABLET PO SCH ×2 (08:37→20:54)
[2018-11-03] MEDS: AMITIZA (LUBIPROSTONE) 24MCG PO SCH (08:37)
[2018-11-03] MEDS: LISINOPRIL 10 MG TABLET PO SCH (08:37)
[2018-11-03] MEDS: MAGNESIUM OXIDE 250 MG TABLET PO SCH ×2 (08:38→16:44)
[2018-11-03] MEDS: NABUMETONE 500MG PO SCH ×2 (08:38→16:45)
[2018-11-03] MEDS: MELOXICAM 7.5 MG TABLET PO SCH ×2 (08:39→16:43)
[2018-11-03] MEDS: ASPIRIN 81 MG TAB.CHEW PO SCH (08:39)
[2018-11-03] MEDS: METOPROLOL SUCCINATE XL 25 MG TAB.SR.24H PO SCH (09:00)
[2018-11-03 16:02] VITALS: BP 101/36
[2018-11-03 19:49] VITALS: BP 110/49
[2018-11-03] MEDS: ATORVASTATIN 40 MG TABLET PO SCH (20:55)
[2018-11-03] MEDS: TRAZODONE 100 MG TABLET PO SCH (20:55)
[2018-11-04] MEDS: SUCRALFATE 1 G TABLET PO SCH ×5 (00:35→23:23)
[2018-11-04 05:54] VITALS: BP 141/61
[2018-11-04] MEDS: PANTOPRAZOLE SODIUM 40 MG TABLET.DR PO SCH (06:14)
[2018-11-04 07:59] VITALS: BP 136/49
--- NOTE | 2018-11-04 08:33 | NUR ---
Patient awake in bed at this time, In No acute distress; respiration even and unlabored. VS taken and stable for patient. Due medications administered as ordered and scheduled. No c/o pain. Pt. on PT/OT service as scheduled. Safety measures in place, call light left within easy reach, endorsed to next shift and will continue with care.
[2018-11-04] MEDS: ASPIRIN 81 MG TAB.CHEW PO SCH (08:46)
[2018-11-04] MEDS: DONEPEZIL 10 MG TABLET PO SCH (08:46)
[2018-11-04] MEDS: DOCUSATE SODIUM 100 MG CAPSULE PO SCH ×2 (08:46→20:52)
[2018-11-04] MEDS: CARBIDOPA/LEVODOPA 25-100MG TABLET PO SCH ×4 (08:49→20:53)
[2018-11-04] MEDS: FERROUS GLUCONATE 324 MG TABLET PO SCH ×2 (08:49→20:53)
[2018-11-04] MEDS: AMITIZA (LUBIPROSTONE) 24MCG PO SCH (08:49)
[2018-11-04] MEDS: NABUMETONE 500MG PO SCH ×2 (08:50→17:25)
[2018-11-04] MEDS: DULOXETINE 60 MG CAPSULE.DR PO SCH (08:50)
[2018-11-04] MEDS: MELOXICAM 7.5 MG TABLET PO SCH ×2 (08:50→17:25)
[2018-11-04] MEDS: GABAPENTIN 100 MG CAPSULE PO SCH (08:51)
[2018-11-04] MEDS: ISOSORBIDE MONONITRATE 30 MG TAB.SR.24H PO SCH (08:51)
[2018-11-04] MEDS: MYRBETRIQ 25 MG PO SCH (08:52)
[2018-11-04] MEDS: ENTACAPONE 200 MG TABLET PO SCH ×2 (08:52→17:24)
[2018-11-04] MEDS: MAGNESIUM OXIDE 250 MG TABLET PO SCH ×2 (08:53→17:24)
[2018-11-04] MEDS: LISINOPRIL 10 MG TABLET PO SCH (08:54)
[2018-11-04] MEDS: HYDROCODONE/APAP 5-325MG TABLET PO PRN ×3 (08:56→23:24)
[2018-11-04] MEDS: METOPROLOL SUCCINATE XL 25 MG TAB.SR.24H PO SCH (09:00)
[2018-11-04 16:45] VITALS: BP 88/43
[2018-11-04 19:30] VITALS: BP 96/47
--- NOTE | 2018-11-04 19:35 | NUR ---
Patient received sitting in wheelchair. AAO x4. No acute distress or SOB noted. On room air. No Complain of pain at this time. Safety measures observed. Fall precaution maintained. Bed in low position, side rails up x2 for safety, brake and alarm on. Call light and personal belongings within reach. Continue to monitor.
--- NOTE | 2018-11-04 20:44 | NUR ---
Per SHIFT SUPERINTENDENT CAUSTIC CRESYLATE vital signs, patient had low BP: 76/46, HR:87. No dizziness or other symptoms, AAO x4. Encouraged him to have more fluid, gave him juices. Rechecked multiple times: BP: 80/44, 85/45, 96/47, HR: 82-86. Continue to monitor and will endorse to the oncoming nurse accordingly.
[2018-11-04] MEDS: ATORVASTATIN 40 MG TABLET PO SCH (20:53)
[2018-11-04] MEDS: TRAZODONE 100 MG TABLET PO SCH (20:55)
[2018-11-05] MEDS: SUCRALFATE 1 G TABLET PO SCH ×4 (06:19→23:08)
[2018-11-05] MEDS: PANTOPRAZOLE SODIUM 40 MG TABLET.DR PO SCH (06:19)
[2018-11-05 06:30] VITALS: BP 123/58
[2018-11-05 08:05] VITALS: BP 142/63
[2018-11-05] MEDS: DOCUSATE SODIUM 100 MG CAPSULE PO SCH ×2 (08:42→20:18)
[2018-11-05] MEDS: ASPIRIN 81 MG TAB.CHEW PO SCH (08:42)
[2018-11-05] MEDS: HYDROCODONE/APAP 5-325MG TABLET PO PRN ×2 (08:42→16:33)
[2018-11-05] MEDS: METOPROLOL SUCCINATE XL 25 MG TAB.SR.24H PO SCH (08:42)
[2018-11-05] MEDS: DONEPEZIL 10 MG TABLET PO SCH (08:43)
[2018-11-05] MEDS: DULOXETINE 60 MG CAPSULE.DR PO SCH (08:43)
[2018-11-05] MEDS: NABUMETONE 500MG PO SCH ×2 (08:43→16:32)
[2018-11-05] MEDS: MYRBETRIQ 25 MG PO SCH (08:43)
[2018-11-05] MEDS: CARBIDOPA/LEVODOPA 25-100MG TABLET PO SCH ×4 (08:43→20:18)
[2018-11-05] MEDS: ISOSORBIDE MONONITRATE 30 MG TAB.SR.24H PO SCH (08:44)
[2018-11-05] MEDS: FERROUS GLUCONATE 324 MG TABLET PO SCH ×2 (08:44→20:19)
[2018-11-05] MEDS: MAGNESIUM OXIDE 250 MG TABLET PO SCH ×2 (08:45→16:32)
[2018-11-05] MEDS: MELOXICAM 7.5 MG TABLET PO SCH ×2 (08:45→16:32)
[2018-11-05] MEDS: LISINOPRIL 10 MG TABLET PO SCH (08:45)
[2018-11-05] MEDS: AMITIZA (LUBIPROSTONE) 24MCG PO SCH (08:46)
[2018-11-05] MEDS: ENTACAPONE 200 MG TABLET PO SCH ×2 (08:46→16:32)
--- NOTE | 2018-11-05 15:16 | NUR ---
Patient noted resting in bed, complaints of pain, PRN [place] given, no signs of distress noted, call light in reach, bed locked and in lowest position
[2018-11-05 15:47] VITALS: BP_SYST 112; BP_SYST 117; BP_DIAS 57; BP_DIAS 59; BP_DIAS 60
[2018-11-05 15:54] VITALS: BP 108/59
[2018-11-05] MEDS: MAGNESIUM HYDROXIDE 30 ML LIQUID UDC PO PRN (16:33)
--- NOTE | 2018-11-05 19:30 | NUR ---
Received pt on bed. Pt awake, alert and orientedx3. Pt shows no signs of acute distress. Safety and comfort provided. Will continue to monitor
[2018-11-05 19:50] VITALS: BP 110/54
[2018-11-05] MEDS: ATORVASTATIN 40 MG TABLET PO SCH (20:18)
[2018-11-05] MEDS: TRAZODONE 100 MG TABLET PO SCH (20:19)
[2018-11-05] MEDS: TEMAZEPAM 15 MG CAPSULE PO PRN (22:48)
--- NOTE | 2018-11-05 22:48 | NUR ---
Pt demanding and impatient regarding sleeping medication. Trazadone given at 2019 as per pt requested to be given it early. At 2200H Pt stated that sleeping pill isn't working and very adamant in getting another sleeping medication. Notified Dr. Myers of concern. At 2220h received new order for Restoril 15mg HSPRN. Carried out order.At 2248h gave Restoril medication to pt. Pt showing negative attitude toward staff. Pt in no acute distress. Pt refused his sequential devise to be put on. Safety and comfort provided. Will continue to monitor.
[2018-11-06 04:50] VITALS: BP 122/61
[2018-11-06] MEDS: PANTOPRAZOLE SODIUM 40 MG TABLET.DR PO SCH (06:12)
[2018-11-06] MEDS: SUCRALFATE 1 G TABLET PO SCH ×3 (06:12→20:42)
--- NOTE | 2018-11-06 06:16 | NUR ---
Pt slept throughout the shift after giving the Restoril. Prescribed medication given and pt tolerated it well. Pt shows no signs of acute distress. Pt cooperative with care. Safety and comfort provided. All needs are met. Will endorse to incoming nurse for continuity of care.
[2018-11-06] MEDS ORDERED: MECLIZINE HCL 25 MG TABLET PO PRN (07:11)
[2018-11-06 07:57] VITALS: BP 139/70
[2018-11-06] MEDS: CARBIDOPA/LEVODOPA 25-100MG TABLET PO SCH ×4 (08:23→20:44)
[2018-11-06] MEDS: MELOXICAM 7.5 MG TABLET PO SCH ×2 (08:23→17:21)
[2018-11-06] MEDS: DONEPEZIL 10 MG TABLET PO SCH (08:23)
[2018-11-06] MEDS: ASPIRIN 81 MG TAB.CHEW PO SCH (08:23)
[2018-11-06] MEDS: DOCUSATE SODIUM 100 MG CAPSULE PO SCH ×2 (08:23→20:42)
[2018-11-06] MEDS: MAGNESIUM OXIDE 250 MG TABLET PO SCH ×2 (08:23→17:21)
[2018-11-06] MEDS: LISINOPRIL 10 MG TABLET PO SCH (08:23)
[2018-11-06] MEDS: ISOSORBIDE MONONITRATE 30 MG TAB.SR.24H PO SCH (08:24)
[2018-11-06] MEDS: AMITIZA (LUBIPROSTONE) 24MCG PO SCH (08:24)
[2018-11-06] MEDS: ENTACAPONE 200 MG TABLET PO SCH ×2 (08:24→17:21)
[2018-11-06] MEDS: MYRBETRIQ 25 MG PO SCH (08:24)
[2018-11-06] MEDS: DULOXETINE 60 MG CAPSULE.DR PO SCH (08:24)
[2018-11-06] MEDS: NABUMETONE 500MG PO SCH ×2 (08:25→17:22)
[2018-11-06] MEDS: METOPROLOL SUCCINATE XL 25 MG TAB.SR.24H PO SCH (08:26)
[2018-11-06] MEDS: FERROUS GLUCONATE 324 MG TABLET PO SCH ×2 (12:33→20:44)
[2018-11-06 16:16] VITALS: BP 114/52
--- NOTE | 2018-11-06 19:40 | NUR ---
Patient received awake,alert and oriented x 3-4. No s/s of acute distress noted. v/s stable. No c/o pain at this time. Fall precautions maintained. Will continue to monitor.
[2018-11-06] MEDS: ATORVASTATIN 40 MG TABLET PO SCH (20:44)
[2018-11-06] MEDS: TEMAZEPAM 15 MG CAPSULE PO PRN (20:45)
[2018-11-06] MEDS: TRAZODONE 100 MG TABLET PO SCH (20:46)
[2018-11-06 20:52] VITALS: BP 118/62
[2018-11-07 05:10] VITALS: BP 126/58
[2018-11-07] MEDS: PANTOPRAZOLE SODIUM 40 MG TABLET.DR PO SCH (06:17)
[2018-11-07] MEDS: SUCRALFATE 1 G TABLET PO SCH ×4 (06:28→21:11)
--- NOTE | 2018-11-07 06:53 | NUR ---
Patient slept throughout the shift. no c/o pain. Prescribed medication given and pt tolerated it well. Pt shows no signs of acute distress. Safety and comfort provided. All needs are met. no any significant events reported. Will continue rehab plan of care.
[2018-11-07] MEDS: METOPROLOL SUCCINATE XL 25 MG TAB.SR.24H PO SCH (08:43)
[2018-11-07] MEDS: FERROUS GLUCONATE 324 MG TABLET PO SCH ×2 (08:43→20:59)
[2018-11-07] MEDS: DOCUSATE SODIUM 100 MG CAPSULE PO SCH ×2 (08:43→20:59)
[2018-11-07] MEDS: ASPIRIN 81 MG TAB.CHEW PO SCH (08:43)
[2018-11-07] MEDS: DONEPEZIL 10 MG TABLET PO SCH (08:43)
[2018-11-07] MEDS: CARBIDOPA/LEVODOPA 25-100MG TABLET PO SCH ×4 (08:43→21:06)
[2018-11-07] MEDS: NABUMETONE 500MG PO SCH ×2 (08:44→17:21)
[2018-11-07] MEDS: ISOSORBIDE MONONITRATE 30 MG TAB.SR.24H PO SCH (08:44)
[2018-11-07] MEDS: DULOXETINE 60 MG CAPSULE.DR PO SCH (08:44)
[2018-11-07] MEDS: AMITIZA (LUBIPROSTONE) 24MCG PO SCH (08:44)
[2018-11-07] MEDS: ENTACAPONE 200 MG TABLET PO SCH ×2 (08:44→17:14)
[2018-11-07] MEDS: MAGNESIUM OXIDE 250 MG TABLET PO SCH ×2 (08:44→17:14)
[2018-11-07] MEDS: MYRBETRIQ 25 MG PO SCH (08:44)
[2018-11-07] MEDS: LISINOPRIL 10 MG TABLET PO SCH (08:45)
[2018-11-07] MEDS: MELOXICAM 7.5 MG TABLET PO SCH ×2 (08:45→17:14)
[2018-11-07 09:27] VITALS: BP 139/53
--- NOTE | 2018-11-07 10:50 | NUR ---
Received patient in bed awake, in NO acute distress. Breathing is even and unlabored. Vital signs taken and stable. Patient visited by MD and with new orders for labs and X-ray; order noted. Due medications administered as ordered and scheduled and tolerated well. Needs attended, safety measures in place, call light at bed side and will continue with care.
[2018-11-07] MEDS: HYDROCODONE/APAP 5-325MG TABLET PO PRN ×2 (14:52→21:02)
--- NOTE | 2018-11-07 15:37 | NUR ---
Patient continue therapy for ambulation and ADL ability. not in distress. Continue pain management if needed with good effect. will continue monitor
[2018-11-07 16:08] VITALS: BP 84/36
[2018-11-07 16:21] VITALS: BP 92/44
--- NOTE | 2018-11-07 16:32 | NUR ---
Patient BP- LA 85/28, RA84/36, no complaint of dizziness, not in distress. Encourage fluid intake and given. Put back to bed. BP- 92/44. complaint of left shoulder and left thigh pain. Applied warm compress to affected area. will continue monitor
[2018-11-07 19:56] VITALS: BP 114/64
[2018-11-07] MEDS: ATORVASTATIN 40 MG TABLET PO SCH (21:00)
[2018-11-07] MEDS: FLUTICASONE PROP NASAL SPRAY 16 GM BOTTLE NS SCH (21:11)
[2018-11-07] MEDS: TRAZODONE 100 MG TABLET PO SCH (22:21)
[2018-11-07] MEDS: TEMAZEPAM 15 MG CAPSULE PO PRN (22:22)
[2018-11-08 04:53] VITALS: BP 124/55
[2018-11-08] MEDS: PANTOPRAZOLE SODIUM 40 MG TABLET.DR PO SCH (06:35)
[2018-11-08] MEDS: SUCRALFATE 1 G TABLET PO SCH ×4 (06:35→20:00)
[2018-11-08 07:34] LABS: BASOPHILS % (AUTO) 0.4 % (0.0-2.0); EOSINOPHILS # (AUTO) 0.1 K/uL (0.0-0.7); HEMATOCRIT 36.8 % (36.7-47.1); HEMOGLOBIN 12.7 g/dL (12.5-16.3); LYMPHOCYTES # (AUTO) 2.3 K/uL (20.0-40.0); LYMPHOCYTES % (AUTO) 37.8 % (20.5-51.5); MEAN CORPUSCULAR HEMOGLOBIN 32.5 uug (23.8-33.4); MEAN CORPUSCULAR HGB CONC 35 g/dL (32.5-36.3); MEAN CORPUSCULAR VOLUME 93.9 fL (73.0-96.2); MONOCYTES # (AUTO) 0.5 K/uL (2.0-10.0); NEUTROPHILS % (AUTO) 50.8 % (38.5-71.5); PLATELET COUNT (AUTO) 189 K/uL (152-348); RED BLOOD CELL COUNT(AUTO) 3.92 MIL/uL (4.06-5.63)
--- NOTE | 2018-11-08 07:44 | NUR ---
Patient in bed and awake at this time, breathing is even and unlabored in NO acute distress. Vital signs taken and stable. No episodes of hypotension noted during shift. Due medications administered as ordered and scheduled and tolerated. Patient visited by MD and with an order for UA and Left shoulder XRay and carried out order. Needs attended, safety measures in place, call light left at bed side, endorsed to next shift and will continue with care.
[2018-11-08 08:13] LABS: ALANINE AMINOTRANSFERASE < 6 U/L (16-63); ALKALINE PHOSPHATASE 40 U/L (50-136); ASPARTATE AMINOTRANSFERASE 10 U/L (15-37); BILIRUBIN,TOTAL 0.4 mg/dL (0.2-1.0); CARBON DIOXIDE 28 mmol/L (21-32); CHLORIDE 107 mmol/L (98-107); CREATININE 1.3 mg/dL (0.6-1.3); GLUCOSE 89 mg/dL (74-106); PHOSPHOROUS 3.5 mg/dL (2.5-4.9); POTASSIUM 4.2 mmol/L (3.5-5.1); TOTAL PROTEIN, SERUM 5.3 g/dL (6.4-8.2); UREA NITROGEN, BLOOD 34 mg/dL (7-18)
[2018-11-08 08:39] VITALS: BP 106/51
[2018-11-08] MEDS: ISOSORBIDE MONONITRATE 30 MG TAB.SR.24H PO SCH (09:00)
[2018-11-08] MEDS: LISINOPRIL 10 MG TABLET PO SCH (09:00)
[2018-11-08] MEDS: METOPROLOL SUCCINATE XL 25 MG TAB.SR.24H PO SCH (09:00)
[2018-11-08] MEDS: CARBIDOPA/LEVODOPA 25-100MG TABLET PO SCH ×4 (09:03→20:00)
[2018-11-08] MEDS: DONEPEZIL 10 MG TABLET PO SCH (09:03)
[2018-11-08] MEDS: FLUTICASONE PROP NASAL SPRAY 16 GM BOTTLE NS SCH (09:05)
[2018-11-08] MEDS: HYDROCODONE/APAP 5-325MG TABLET PO PRN ×2 (09:05→14:23)
[2018-11-08 09:07] LABS: *BILIRUBIN,URIN NEGATIVE (NEGATIVE); *BLOOD, URINE NEGATIVE (NEGATIVE); *CLARITY,URINE CLEAR (CLEAR); *COLOR,URINE YELLOW (YELLOW); *KETONES,URINE NEGATIVE (NEGATIVE); *UROBILINOGEN,URINE 0.2 E.U./dl (NORMAL); LEUKOCYTE ESTERASE ,URINE NEGATIVE (NEGATIVE); NITRITE, URINE NEGATIVE (NEGATIVE); PH,URINE 5.5 (5.0-8.0); UGLUCOSE NEGATIVE (NEGATIVE)
[2018-11-08] MEDS: MYRBETRIQ 25 MG PO SCH (09:07)
[2018-11-08] MEDS: AMITIZA (LUBIPROSTONE) 24MCG PO SCH (09:07)
[2018-11-08] MEDS: FERROUS GLUCONATE 324 MG TABLET PO SCH ×2 (09:07→20:00)
[2018-11-08] MEDS: ENTACAPONE 200 MG TABLET PO SCH ×2 (09:07→17:19)
[2018-11-08] MEDS: NABUMETONE 500MG PO SCH ×2 (09:08→17:17)
[2018-11-08] MEDS: MELOXICAM 7.5 MG TABLET PO SCH ×2 (09:09→17:18)
[2018-11-08] MEDS: MAGNESIUM OXIDE 250 MG TABLET PO SCH ×2 (09:09→17:17)
[2018-11-08] MEDS: DULOXETINE 60 MG CAPSULE.DR PO SCH (09:10)
[2018-11-08] MEDS: ASPIRIN 81 MG TAB.CHEW PO SCH (09:10)
[2018-11-08] MEDS: DOCUSATE SODIUM 100 MG CAPSULE PO SCH ×2 (09:10→20:00)
--- NOTE | 2018-11-08 15:19 | NUR ---
Pt received this morning AAOx4, assessed, no acute distress or SOB, in a pleasant mood, slept well. VSS, BP medication held due to low BP of 106/51. Pt requested pain medication prior to working with therapist. Reported effective. Pt compliant with all medication administration and therapies as offered. Plan of care discussed. Pt assisted to the bathroom for BMx1 and back to bed with walker, no c/o dizziness. Bed in locked and lowest position with side rails up x2. Call light and personal belongings placed within reach. Will continue to monitor for safety. All needs promptly attended to this shift.
[2018-11-08 16:37] VITALS: BP 140/59
[2018-11-08 19:37] VITALS: BP 109/46
[2018-11-08] MEDS: ATORVASTATIN 40 MG TABLET PO SCH (20:00)
[2018-11-08] MEDS: TEMAZEPAM 15 MG CAPSULE PO PRN (22:05)
[2018-11-08] MEDS: TRAZODONE 100 MG TABLET PO SCH (22:05)
--- NOTE | 2018-11-09 02:57 | NUR ---
Patient received in bed. AAO x4. No acute distress or SOB noted. Able to make needs known. On room air. No Complain of pain. All due medication given and well tolerated. All needs attended promptly. Safety measures observed. Fall precaution maintained. Bed in low position, side rails up x2 for safety, brake and alarm on. Call light and personal belongings within reach. Continue to monitor and will endorse to the day shift nurse accordingly.
[2018-11-09 05:12] VITALS: BP 115/54
[2018-11-09] MEDS: PANTOPRAZOLE SODIUM 40 MG TABLET.DR PO SCH (06:31)
[2018-11-09] MEDS: SUCRALFATE 1 G TABLET PO SCH ×4 (06:32→21:11)
[2018-11-09] MEDS ORDERED: PANTOPRAZOLE SODIUM 40 MG TABLET.DR PO SCH (07:00)
[2018-11-09 07:30] VITALS: BP 143/65
[2018-11-09] MEDS: DONEPEZIL 10 MG TABLET PO SCH (08:21)
[2018-11-09] MEDS: ASPIRIN 81 MG TAB.CHEW PO SCH (08:21)
[2018-11-09] MEDS: METOPROLOL SUCCINATE XL 25 MG TAB.SR.24H PO SCH (08:21)
[2018-11-09] MEDS: MELOXICAM 7.5 MG TABLET PO SCH ×2 (08:22→16:56)
[2018-11-09] MEDS: CARBIDOPA/LEVODOPA 25-100MG TABLET PO SCH ×4 (08:22→21:11)
[2018-11-09] MEDS: MYRBETRIQ 25 MG PO SCH (08:22)
[2018-11-09] MEDS: AMITIZA (LUBIPROSTONE) 24MCG PO SCH (08:22)
[2018-11-09] MEDS: ENTACAPONE 200 MG TABLET PO SCH ×2 (08:22→16:56)
[2018-11-09] MEDS: DULOXETINE 60 MG CAPSULE.DR PO SCH (08:22)
[2018-11-09] MEDS: DOCUSATE SODIUM 100 MG CAPSULE PO SCH ×2 (08:22→21:12)
[2018-11-09] MEDS: FLUTICASONE PROP NASAL SPRAY 16 GM BOTTLE NS SCH (08:23)
[2018-11-09] MEDS: NABUMETONE 500MG PO SCH ×2 (08:23→16:59)
[2018-11-09] MEDS: ISOSORBIDE MONONITRATE 30 MG TAB.SR.24H PO SCH (08:23)
[2018-11-09] MEDS: FERROUS GLUCONATE 324 MG TABLET PO SCH ×2 (08:23→21:11)
[2018-11-09] MEDS: MAGNESIUM OXIDE 250 MG TABLET PO SCH ×2 (08:27→16:56)
[2018-11-09] MEDS: LISINOPRIL 10 MG TABLET PO SCH (08:37)
--- NOTE | 2018-11-09 11:02 | NUR ---
INTERDISCIPLINARY TEAM CONFERENCE
--- NOTE | 2018-11-09 14:05 | NUR ---
Received patient awake in bed in stable condition. Continue therapy for ambulation and ADL ability. tolerated well. COntinue pain management if needed. New order bengay ointment for shoulder pain as per MD Myers order. will continue monitor
[2018-11-09] MEDS ORDERED: METHYL SALICYLATE/MENTHOL CREAM 28 GM TUBE TOP PRN (14:45)
[2018-11-09 16:01] VITALS: BP 94/51
[2018-11-09 20:04] VITALS: BP 130/64
[2018-11-09] MEDS: GABAPENTIN 300MG CAPSULE PO PRN (21:12)
[2018-11-09] MEDS: ATORVASTATIN 40 MG TABLET PO SCH (21:12)
[2018-11-09] MEDS: TRAZODONE 100 MG TABLET PO SCH (22:15)
[2018-11-09] MEDS: TEMAZEPAM 15 MG CAPSULE PO SCH (22:16)
[2018-11-10] MEDS: PANTOPRAZOLE SODIUM 40 MG TABLET.DR PO SCH (06:27)
[2018-11-10] MEDS: SUCRALFATE 1 G TABLET PO SCH ×4 (06:30→20:42)
[2018-11-10 06:37] VITALS: BP 149/68
--- NOTE | 2018-11-10 07:37 | NUR ---
Patient in bed sleeping comfortably at this time, easily arousable. Patient is AAO X 4. Respiration is even and unlabored. Vital signs taken and stable. Due medications administered as ordered scheduled and tolerated well. Needs attended, fall precautions in place, safety measures in place. call light left at bed side and will continue with plan of care.
--- NOTE | 2018-11-10 07:58 | NUR ---
Patient noted sitting up in bed eating breakfast, complaints of neck pain,took all AM medications, PRN norco given prior to therapy, no signs of distress noted, call light in reach, bed locked and in lowest position, all needs met at this time
[2018-11-10 08:01] VITALS: BP 142/60
[2018-11-10] MEDS: DONEPEZIL 10 MG TABLET PO SCH (08:34)
[2018-11-10] MEDS: HYDROCODONE/APAP 5-325MG TABLET PO PRN ×2 (08:34→18:25)
[2018-11-10] MEDS: DOCUSATE SODIUM 100 MG CAPSULE PO SCH ×2 (08:34→20:41)
[2018-11-10] MEDS: CARBIDOPA/LEVODOPA 25-100MG TABLET PO SCH ×4 (08:34→20:41)
[2018-11-10] MEDS: FERROUS GLUCONATE 324 MG TABLET PO SCH ×2 (08:34→20:42)
[2018-11-10] MEDS: MAGNESIUM OXIDE 250 MG TABLET PO SCH ×2 (08:34→18:24)
[2018-11-10] MEDS: ASPIRIN 81 MG TAB.CHEW PO SCH (08:34)
[2018-11-10] MEDS: METOPROLOL SUCCINATE XL 25 MG TAB.SR.24H PO SCH (08:35)
[2018-11-10] MEDS: NABUMETONE 500MG PO SCH ×2 (08:35→18:25)
[2018-11-10] MEDS: ENTACAPONE 200 MG TABLET PO SCH ×2 (08:35→18:24)
[2018-11-10] MEDS: DULOXETINE 60 MG CAPSULE.DR PO SCH (08:35)
[2018-11-10] MEDS: MYRBETRIQ 25 MG PO SCH (08:35)
[2018-11-10] MEDS: AMITIZA (LUBIPROSTONE) 24MCG PO SCH (08:35)
[2018-11-10] MEDS: MELOXICAM 7.5 MG TABLET PO SCH ×2 (08:35→18:25)
[2018-11-10] MEDS: LISINOPRIL 10 MG TABLET PO SCH (08:36)
[2018-11-10] MEDS: FLUTICASONE PROP NASAL SPRAY 16 GM BOTTLE NS SCH (08:36)
[2018-11-10] MEDS: ISOSORBIDE MONONITRATE 30 MG TAB.SR.24H PO SCH (08:36)
[2018-11-10] MEDS ORDERED: CELECOXIB 200 MG CAPSULE PO SCH (09:00)
[2018-11-10 17:04] VITALS: BP 108/52
[2018-11-10] MEDS: GABAPENTIN 300MG CAPSULE PO PRN (18:25)
[2018-11-10] MEDS: ATORVASTATIN 40 MG TABLET PO SCH (20:41)
[2018-11-10] MEDS: TRAZODONE 100 MG TABLET PO SCH (20:41)
[2018-11-10] MEDS: TEMAZEPAM 15 MG CAPSULE PO SCH (20:47)
[2018-11-10 21:06] VITALS: BP 117/60
--- NOTE | 2018-11-10 21:30 | NUR ---
Received pt resting in bed. AAO x4, with episodes of forgetfulness. No acute distress noted. Denies pain or discomfort at this time. All due meds given as ordered. Safety measures maintained. Call light and personal belongings within reach. Will continue to monitor.
[2018-11-11 04:53] VITALS: BP 122/54
[2018-11-11] MEDS: PANTOPRAZOLE SODIUM 40 MG TABLET.DR PO SCH (06:22)
[2018-11-11] MEDS: SUCRALFATE 1 G TABLET PO SCH ×4 (06:30→21:02)
--- NOTE | 2018-11-11 07:40 | NUR ---
Patient noted resting bed with eyes closed, no facial cues of pain noted, no signs of distress noted, call light in reach, bed locked and in lowest position, all needs met
[2018-11-11 08:00] VITALS: BP 147/64
[2018-11-11] MEDS: AMITIZA (LUBIPROSTONE) 24MCG PO SCH (08:24)
[2018-11-11] MEDS: MYRBETRIQ 25 MG PO SCH (08:24)
[2018-11-11] MEDS: GABAPENTIN 300MG CAPSULE PO PRN (08:24)
[2018-11-11] MEDS: NABUMETONE 500MG PO SCH ×2 (08:24→17:40)
[2018-11-11] MEDS: FERROUS GLUCONATE 324 MG TABLET PO SCH ×2 (08:25→21:02)
[2018-11-11] MEDS: FLUTICASONE PROP NASAL SPRAY 16 GM BOTTLE NS SCH (08:25)
[2018-11-11] MEDS: DOCUSATE SODIUM 100 MG CAPSULE PO SCH ×2 (08:25→21:02)
[2018-11-11] MEDS: MAGNESIUM OXIDE 250 MG TABLET PO SCH ×2 (08:25→17:39)
[2018-11-11] MEDS: ASPIRIN 81 MG TAB.CHEW PO SCH (08:25)
[2018-11-11] MEDS: DULOXETINE 60 MG CAPSULE.DR PO SCH (08:26)
[2018-11-11] MEDS: ENTACAPONE 200 MG TABLET PO SCH ×2 (08:26→17:39)
[2018-11-11] MEDS: CARBIDOPA/LEVODOPA 25-100MG TABLET PO SCH ×4 (08:26→21:02)
[2018-11-11] MEDS: METOPROLOL SUCCINATE XL 25 MG TAB.SR.24H PO SCH (08:26)
[2018-11-11] MEDS: DONEPEZIL 10 MG TABLET PO SCH (08:26)
[2018-11-11] MEDS: MELOXICAM 7.5 MG TABLET PO SCH ×2 (08:26→17:39)
[2018-11-11] MEDS: ISOSORBIDE MONONITRATE 30 MG TAB.SR.24H PO SCH (08:27)
[2018-11-11] MEDS: HYDROCODONE/APAP 5-325MG TABLET PO PRN ×3 (08:27→17:41)
[2018-11-11] MEDS: LISINOPRIL 10 MG TABLET PO SCH (08:28)
[2018-11-11 16:38] VITALS: BP 97/54
[2018-11-11 20:18] VITALS: BP 102/73
[2018-11-11] MEDS: TRAZODONE 100 MG TABLET PO SCH (21:02)
[2018-11-11] MEDS: ATORVASTATIN 40 MG TABLET PO SCH (21:02)
[2018-11-11] MEDS: TEMAZEPAM 15 MG CAPSULE PO SCH (21:02)
--- NOTE | 2018-11-11 21:11 | NUR ---
Received pt resting in bed. AAO x3-4. No acute distress noted. Denies pain/ discomfort. Due meds given as ordered. Provided snacks as per request. Safety measures maintained. Call light and personal belongings within reach. Will continue to monitor.
[2018-11-12 05:43] VITALS: BP 145/64
[2018-11-12] MEDS: PANTOPRAZOLE SODIUM 40 MG TABLET.DR PO SCH (06:12)
[2018-11-12] MEDS: SUCRALFATE 1 G TABLET PO SCH ×3 (06:30→17:28)
[2018-11-12 07:06] LABS: BASOPHILS % (AUTO) 0.7 % (0.0-2.0); EOSINOPHILS # (AUTO) 0.1 K/uL (0.0-0.7); EOSINOPHILS % (AUTO) 2.3 % (0.0-7.0); HEMATOCRIT 36.8 % (36.7-47.1); HEMOGLOBIN 12.2 g/dL (12.5-16.3); LYMPHOCYTES # (AUTO) 2.1 K/uL (20.0-40.0); LYMPHOCYTES % (AUTO) 36.7 % (20.5-51.5); MEAN CORPUSCULAR HGB CONC 33 g/dL (32.5-36.3); MEAN CORPUSCULAR VOLUME 93.7 fL (73.0-96.2); MONOCYTES # (AUTO) 0.4 K/uL (2.0-10.0); MONOCYTES % (AUTO) 7.2 % (0.0-11.0); NEUTROPHILS % (AUTO) 53.1 % (38.5-71.5); PLATELET COUNT (AUTO) 182 K/uL (152-348); RED BLOOD CELL COUNT(AUTO) 3.93 MIL/uL (4.06-5.63); WHITE BLOOD COUNT (AUTO) 5.7 K/uL (3.6-10.2)
[2018-11-12 07:24] LABS: ALANINE AMINOTRANSFERASE < 6 U/L (16-63); ALKALINE PHOSPHATASE 36 U/L (50-136); ASPARTATE AMINOTRANSFERASE 12 U/L (15-37); BILIRUBIN,TOTAL 0.3 mg/dL (0.2-1.0); CARBON DIOXIDE 28 mmol/L (21-32); CHLORIDE 108 mmol/L (98-107); CREATININE 1.3 mg/dL (0.6-1.3); GLUCOSE 88 mg/dL (74-106); PHOSPHOROUS 3.8 mg/dL (2.5-4.9); POTASSIUM 4.4 mmol/L (3.5-5.1); TOTAL PROTEIN, SERUM 5.2 g/dL (6.4-8.2); UREA NITROGEN, BLOOD 28 mg/dL (7-18)
[2018-11-12 07:30] VITALS: BP 136/74
[2018-11-12] MEDS: ENTACAPONE 200 MG TABLET PO SCH ×2 (08:39→17:28)
[2018-11-12] MEDS: ASPIRIN 81 MG TAB.CHEW PO SCH (08:39)
[2018-11-12] MEDS: DONEPEZIL 10 MG TABLET PO SCH (08:39)
[2018-11-12] MEDS: DOCUSATE SODIUM 100 MG CAPSULE PO SCH (08:39)
[2018-11-12] MEDS: MAGNESIUM OXIDE 250 MG TABLET PO SCH ×2 (08:39→17:28)
[2018-11-12] MEDS: CARBIDOPA/LEVODOPA 25-100MG TABLET PO SCH ×3 (08:39→17:30)
[2018-11-12] MEDS: FERROUS GLUCONATE 324 MG TABLET PO SCH (08:39)
[2018-11-12] MEDS: DULOXETINE 60 MG CAPSULE.DR PO SCH (08:39)
[2018-11-12] MEDS: MELOXICAM 7.5 MG TABLET PO SCH ×2 (08:39→17:28)
[2018-11-12] MEDS: METOPROLOL SUCCINATE XL 25 MG TAB.SR.24H PO SCH (08:40)
[2018-11-12] MEDS: LISINOPRIL 10 MG TABLET PO SCH (08:40)
[2018-11-12] MEDS: ISOSORBIDE MONONITRATE 30 MG TAB.SR.24H PO SCH (08:41)
[2018-11-12] MEDS: AMITIZA (LUBIPROSTONE) 24MCG PO SCH (08:41)
[2018-11-12] MEDS: NABUMETONE 500MG PO SCH ×2 (08:41→17:31)
[2018-11-12] MEDS: HYDROCODONE/APAP 5-325MG TABLET PO PRN ×2 (08:41→17:30)
[2018-11-12] MEDS: MYRBETRIQ 25 MG PO SCH (08:41)
[2018-11-12] MEDS: FLUTICASONE PROP NASAL SPRAY 16 GM BOTTLE NS SCH (08:41)
[2018-11-12] MEDS: GABAPENTIN 300MG CAPSULE PO PRN (11:44)
--- NOTE | 2018-11-12 12:31 | NUR ---
Patient noted sitting up in bed, PRN norco given for neck pain 10/06, no signs of distress noted, call light in reach, bed locked and in lowest position, all needs met
[2018-11-12 16:53] VITALS: BP 124/50
--- NOTE | 2018-11-12 18:39 | NUR ---
Patient discharge at 1800 via private car and by son with wheelchair, all belongs and medications accounted for and given back to patient , belongings sheet signed, vitals: 124/50, 98.1 oral temperature, 65 pulse, 18 respirations, 95% in room air, exit care provided, discharge instructions give, [facility] arranged by case work aide, follow up appointments arranged by case work aide, no signs of distress, patient medicated for pain, MD Myers and Sohail notified of patient discharge
== END 2018-11-12 17:50 | disposition home health service (06) | DRG 91 ==
PROVIDERS: ADMIT Physical Medicine & Rehabilitation Pain Medicine; ATTEND Physical Medicine & Rehabilitation Pain Medicine
DX: G92 Toxic encephalopathy (principal); I21.A1 Myocardial infarction type 2; N17.0 Acute kidney failure with tubular necrosis; D68.59 Other primary thrombophilia; I50.22 Chronic systolic (congestive) heart failure; F02.80 Dementia in other diseases classified elsewhere, unspecified severity, without behavioral disturbance, psychotic disturbance, mood disturbance, and anxiety; G31.83 Neurocognitive disorder with Lewy bodies; G90.8 Other disorders of autonomic nervous system; E78.5 Hyperlipidemia, unspecified; F32.9 Major depressive disorder, single episode, unspecified; T42.6X5D Adverse effect of other antiepileptic and sedative-hypnotic drugs, subsequent encounter; T40.2X5D Adverse effect of other opioids, subsequent encounter; E11.40 Type 2 diabetes mellitus with diabetic neuropathy, unspecified; I25.10 Atherosclerotic heart disease of native coronary artery without angina pectoris; Z95.1 Presence of aortocoronary bypass graft; K21.9 Gastro-esophageal reflux disease without esophagitis; R53.1 Weakness; G89.29 Other chronic pain; I11.0 Hypertensive heart disease with heart failure; Z98.1 Arthrodesis status; K30 Functional dyspepsia; M54.5 Low back pain
CPT/HCPCS: 36415; 73030; 82652; 83735; 84100; 85025; 87077; 87086; J3535